=== PATIENT | male | born 1970 | race Caucasian/White ===

== ENCOUNTER 2019-06-13 05:41 | Emergency (ER) | payer BC, SELFPAY ==
[2019-06-13 05:49] VITALS: BP 155/114; PULSE 110; RESP 16; TEMP 37.1; O2SAT 100
--- NOTE | 2019-06-13 06:25 | ED.EXTPRO ---
HPI - Extremity Problem General Chief complaint: Extremity Problem,Nontraumatic Stated complaint: gout Time Seen by Provider: 06/13/19 06:01 History of Present Illness HPI Narrative: Patient is a 48 y/o CM who p/w left ankle pain. H/o gout. Had similar flare 01/2019. Had indomethacine and cholchicine from telemed physician. Had refills. Took 5 day course ending three days ago. Mild improvement in pain. Still walking with a limp. NO f/chills/n/v. No trauma. Related Data Home Medications Medication Instructions Recorded Confirmed No Home Medications 06/13/19 06/13/19 Allergies Allergy/AdvReac Type Severity Reaction Status Date / Time Penicillins Allergy Unknown Unknown Unverified 06/13/19 05:48 Review of Systems Constitutional: Constitutional: Denies chills, Denies fever(s) and Denies weakness Musculoskeletal: Musculoskeletal: Reports back pain (chronic), Reports arthralgias, Reports joint swelling and Denies muscle cramps Integumentary/Breasts: Skin/Breast: Denies erythema and Denies rash PMFSH Past Medical History Medical History (Updated 06/13/19 @ 06:46 by Baldemar Pleitez MD) Gout Hypertension Surgical History Surgical History (Updated 06/13/19 @ 06:46 by Baldemar Pleitez MD) No pertinent past surgical history Social History Social History (Updated 06/13/19 @ 06:47 by Baldemar Pleitez MD) Smoking status: Current every day smoker Exam Const: General: healthy appearing, no acute distress, well developed and alert Orientation/consciousness: patient oriented x3 Limitations: no limitations HENMT: Head: normocephalic and atraumatic Resp: Effort & Inspection: normal respiratory effort and able to speak in complete sentences Auscultation: clear to auscultation bilaterally Cardio: Rate: regular rate Rhythm: regular rhythm Peripheral pulses: popliteal pulses present Skin: General skin exam: normal color and no rashes or lesions noted Trauma: no lacerations or abrasions Wounds: no wounds Neuro: General: patient oriented x3 Speech: normal speech Extrem: General: normal to inspection and no clubbing, cyanosis or edema Other: Limited ROM in left ankle due to pain. No point tenderness to ankle/foot/knee. No swelling of ankle/foot on left. Course Course Emergency Course: Moderate improvement with outpt tx with indomethacin/colchicine. Has been 3 days since last tx. Will give colchicine/prednisone for home. Vital Signs Vital signs: Vital Signs Temperature 98.7 F 06/13/19 05:49 Pulse Rate 110 H 06/13/19 05:49 Respiratory Rate 16 06/13/19 05:49 Blood Pressure 155/114 H 06/13/19 05:49 Pulse Oximetry 100 06/13/19 05:49 Temperature 98.7 F 06/13/19 05:49 Pulse Rate 110 H 06/13/19 05:49 Respiratory Rate 16 06/13/19 05:49 Blood Pressure 155/114 H 06/13/19 05:49 Pulse Oximetry 100 06/13/19 05:49 Discharge Plan Discharge Clinical Impression: Gout Qualifiers: Gout site: ankle Gout etiology: unspecified cause Chronicity: acute Laterality: left Qualified Code(s): M10.9 - Gout, unspecified Patient Disposition: Home, Self-Care Condition: Stable Instructions: Low Purine Diet (ED), Gout (ED) Additional Instructions: Return to the ER if your ankle is red/hot, you have fever over 101F, you have worsening pain, or you have other concerns. Prescriptions: New prednisone 50 mg tablet 50 mg PO DAILY Qty: 7 RF: 0 colchicine 0.6 mg tablet See Rx Instructions .ROUTE .COMPLEX Qty: 3 RF: 0 No Action No Home Medications RF: 0 Follow-up/Referrals: Mason Daniels MD [Physician] - 1 Week UNKNOWN,DOCTOR [Primary Care Provider] -
[2019-06-13 07:01] VITALS: BP 187/112; PULSE 80; RESP 16; O2SAT 99
== END 2019-06-13 07:03 | disposition home or self-care (01) ==
PROVIDERS: Emergency Provider Emergency Medicine
DX: M10.9 Gout, unspecified (principal); I10 Essential (primary) hypertension; F17.200 Nicotine dependence, unspecified, uncomplicated
CPT/HCPCS: 99283

== ENCOUNTER 2019-06-28 09:52 | Emergency (ER) | payer BC, SELFPAY ==
[2019-06-28] VITALS (7 sets, daily range): BP systolic 102–153; BP diastolic 70–98; PULSE 71–89; RESP 16–20; O2SAT 99–100
--- NOTE | ~2019-06-28 | XR_ITS ---
XR chest 1V portable DATE: 06/28/2019 10:30 INDICATION: Chest pain. Syncope. TECHNIQUE: 2 AP views on 06/28/2019 at 1020 hours COMPARISON: None FINDINGS: Diffuse idiopathic skeletal hyperostosis of the thoracic spine. No pulmonary infiltrate or consolidation, pleural effusion or pulmonary vascular congestion or pneumo thorax. IMPRESSION: No active cardiopulmonary disease Reviewed, dictated and finalized at location A.
--- NOTE | 2019-06-28 09:56 | ECG_ITS ---
Measurements Intervals [place] Rate: 74 P: 56 MA: 135 QRS: 61 QRSD: 102 T: 71 QT: 341 QTc: 381 Interpretive Statements SINUS RHYTHM ST ELEVATION IN ANTEROLAT/INF LEADS- PROBABLY EARLY REPOLARIZATION MINIMAL Q WAVES- INFERIOR LEADS BASELINE ARTIFACT- I, II, AVR BORDERLINE ECG Electronically Signed On 06-28-2019 11:01:55 CDT by Mickey Croft D.O.
--- NOTE | 2019-06-28 09:57 | ED.SYNCOPE ---
HPI - Syncope General Chief Complaint: Syncope Stated Complaint: SYNCOPE Source: RN notes reviewed History of Present Illness HPI narrative: Patient presents emergency department via EMS for syncopal episode. The patient was in cardiology office getting a chemical stress test. States he was injected with the medication and began to feel hot and flushed and sweaty. Patient states he felt like he was going to pass out and then had a syncopal episode on the table. Patient denied having any chest pain or shortness of breath. Currently back awake and alert. Denies any previous cardiac history. Denies any fevers or chills abdominal pain nausea or vomiting. Patient states that he did eat a bagel for breakfast this morning Related Data Allergies Allergy/AdvReac Type Severity Reaction Status Date / Time Penicillins Allergy Unknown Unknown Verified 06/28/19 09:58 Review of Systems Review of Systems: Narrative: Gen.: Denies fevers or chills Eyes: Denies eye pain or visual change ENT: Denies congestion Respiratory: Denies shortness of breath or cough CV: Reports single episode GI: Denies abdominal pain nausea, emesis or diarrhea Musculoskeletal: Denies back pain or muscle pain Neuro: Denies numbness, tingling, weakness or focal weakness Skin: Denies rash Except as documented, all other systems reviewed and negative PMFSH Past Medical History Medical History Gout Hypertension Surgical History Surgical History (Updated 06/13/19 @ 06:46 by Baldemar Pleitez MD) No pertinent past surgical history Family History Family History (Updated 06/20/19 @ 08:41 by Steffen Vegas [facility]) Father Epilepsy Mother Heart disease Diabetes mellitus Social History Social History Smoking status: Current every day smoker Tobacco type: cigarettes Alcohol intake: former Substance use: never Gender identity (if verbalized by the patient): Male Spiritual care concerns: No Exam Narrative: Exam Narrative: APPEARANCE: No acute distress, nontoxic, resting in bed EYES: EOMI HEENT: Normocephalic, atraumatic, OMM RESPIRATORY: No respiratory distress Clear to auscultation bilaterally with no rhonchi wheezing or rales. CARDIOVASCULAR: Regular rate and rhythm without murmurs rubs or gallops. ABDOMINAL: Soft, nontender, nondistended, no rebound or guarding MUSCULOSKELETAl: Moves all extremities. No clubbing, cyanosis or edema. NEURO: Awake and alert. Following commands, speech normal, no focal deficits SKIN:: Warm, dry. No rashes lesions or abrasions PSYCHIATRIC: Normal affect/mood, Course Course Emergency Course: Discussed with Dr. Ibanez presentation work-up. Dr. Ibanez came to the emergency department evaluate the patient. Request a 3-hour troponin be obtained and if negative for the patient to go directly to his office with IV intact to receive his stress test After discussion with Dr. Ibanez in discussion with his office the patient had gotten up and use the restroom and come back and had a syncopal episode following coming back the patient is had syncopal episodes before with diabetes being started and felt this is vasovagal Discussed with patient results of workup and diagnosis. Discussed need for follow-up with primary care, proper use of medication, and reasons to return to the emergency department. Patient understands and agrees to current treatment plan Vital Signs Vital signs: Vital Signs Pulse Rate 75 06/28/19 09:50 Respiratory Rate 16 06/28/19 09:50 Blood Pressure 127/94 H 06/28/19 09:50 Pulse Oximetry 100 06/28/19 09:50 Pulse Rate 89 06/28/19 13:02 Respiratory Rate 20 06/28/19 13:02 Blood Pressure 153/84 H 06/28/19 13:02 Pulse Oximetry 100 06/28/19 13:02 MDM - Syncope MDM Narrative Medical decision making narrative: Patient's episode of syncope is
[2019-06-28 10:00] LABS: Glucose Point of Care 82 (65-105)
[2019-06-28 10:08] LABS: Basophils Absolute Auto 0.1 K/mm3 (0.0-0.1); Basophils Percent Auto 0.5 % (0.2-1.2); Eosinophils Absolute Auto 0.3 K/mm3 (0-0.3); Eosinophils Percent Auto 2.1 % (0-4.4); Hematocrit 51.2 % (42.0-52.0); Hemoglobin 17.4 g/dL (14.0-18.0); Immature Granulocyte Absolute 0.08 K/mm3 (0.00-0.031); Immature Granulocyte Percent A 0.7 % (0-0.5); Lymphocytes Absolute Auto 4.64 K/mm3 (0.9-3.2); Lymphocytes Percent Auto 39.4 % (18.3-44.2); Mean Corpuscular Hemoglobin 28.9 pg (26-34); Mean Platelet Volume 9.6 fl (7.4-10.4); Monocytes Absolute Auto 1.1 K/mm3 (0.1-0.6); Monocytes Percent Auto 9.5 % (2.6-8.5); Neutrophils Absolute Auto 5.6 K/mm3 (1.3-6.7); Neutrophils Percent Auto 47.8 % (45.5-73.1); Platelet Count Result 276 k/mm3 (150-375); Red Blood Count 6.02 M/mm3 (4.6-6.20); Red Cell Distribution Width 13.1 % (11.5-14.5); White Blood Count 11.8 K/mm3 (4.5-10.0)
[2019-06-28 10:17] LABS: Partial Thromboplastin Time 25.8 SECONDS (22.3-36.8); Prothrombin Time 12.5 Seconds (11.1-14.7)
[2019-06-28 10:18] LABS: Alanine Aminotransferase 40 U/L (4-50); Albumin Level 4.8 g/dL (3.5-5.1); Alkaline Phosphatase 71 U/L (38-126); Aspartate Amino Transferase 30 U/L (17-59); Bilirubin,Total 0.6 mg/dL (0.2-1.3); Blood Urea Nitrogen 14 mg/dL (9-20); Calcium 10.1 mg/dL (8.4-10.2); Carbon Dioxide 26 mmol/L (22-30); Chloride 101 mmol/L (98-107); Estimated CRCL calculation 104 ml/min; Estimated Glomerular Filt Rate > 60; Glucose 94 mg/dL (75-110); Potassium 4.1 mmol/L (3.4-5.0); Sodium 138 mmol/L (137-145)
[2019-06-28 10:29] LABS: Troponin I < 0.012 ng/mL (0.000-0.034)
[2019-06-28] MEDS: SODIUM CHLORIDE 0.9% IV 1,000 ML 999 ML IV CONT (10:30)
[2019-06-28 13:28] LABS: Troponin I < 0.012 ng/mL (0.000-0.034)
== END 2019-06-28 13:40 | disposition home or self-care (01) ==
PROVIDERS: Emergency Provider Emergency Medicine; PCP Internal Medicine
DX: R55 Syncope and collapse (principal); I10 Essential (primary) hypertension; M10.9 Gout, unspecified; R94.31 Abnormal electrocardiogram [ECG] [EKG]; F17.210 Nicotine dependence, cigarettes, uncomplicated
CPT/HCPCS: 36415; 71045; 80053; 82948; 84484; 85025; 85610; 85730; 93005; 96360; 99284; J7030

== ENCOUNTER 2019-08-17 11:06 | Outpatient (CLI) | payer BC, SELFPAY ==
--- NOTE | ~2019-08-17 | XR_ITS ---
EXAMINATION: XR lumbar spine 2-3V DATE: 08/17/2019 11:36 INDICATION: Low back pain TECHNIQUE: Anteroposterior and lateral views of the lumbar spine, and cone-down lateral view of the l umbosacral junction were obtained. COMPARISON: 05/29/2014 FINDINGS: There are 2 mm of stable retrolisthesis of L5 on S1. There is unchanged mild loss of interv ertebral disc space height throughout the lumbar spine. The vertebral body heights are normal. Degene rative osteophytes project from the anterior endplates of multiple vertebral bodies. Mild to moderate facet osteoarthritis is present in the lower lumbar spine. IMPRESSION: 1. Moderate lumbar spondylosis without acute findings or significant interval change. Reviewed, dictated and finalized at location A. IMPRESSION: 1. Moderate lumbar spondylosis without acute findings or significant interval tiffanie mejias
== END 2019-08-17 11:07 | disposition home or self-care (01) ==
PROVIDERS: PCP Internal Medicine; Visit Provider Chiropractor Rehabilitation
DX: M47.896 Other spondylosis, lumbar region (principal)
CPT/HCPCS: 72100

== ENCOUNTER 2019-10-06 00:40 | Outpatient (CLI) | payer BC, SELFPAY ==
[2019-10-06 18:11] LABS: SARS-CoV-2 RNA PCR Negative
== END 2019-10-06 00:41 | disposition home or self-care (01) ==
LOC: ANHCOVIDDT 00:40
PROVIDERS: PCP Internal Medicine; Visit Provider Internal Medicine Gastroenterology
DX: Z01.812 Encounter for preprocedural laboratory examination (principal); Z11.59 Encounter for screening for other viral diseases
CPT/HCPCS: 87635; C9803; U0003

== ENCOUNTER 2019-10-09 01:56 | Day surgery (SDC) | payer BC, SELFPAY ==
[2019-10-01 12:07] VITALS: BMI 33.9
[2019-10-09 09:24] VITALS: BP 137/93; PULSE 72; RESP 22; TEMP 36.3; O2SAT 95; BMI 32.7
[2019-10-09] MEDS: LACTATED RINGERS 1,000 ML 150 ML IV CONT (09:43)
--- NOTE | 2019-10-09 10:31 | WPDANESEPPF ---
Anes - Initial Pre Proc Eval Procedure: Operation Date: 10/09/19 11:00 Proposed Procedures p Screening Colonoscopy - Manjit Lopez MD Date/Time: 10/09/19 10:31 Surgeon: Manjit Lopez MD Pre Op Diagnosis: neoplasm screening Patient Data Age: 49 Gender: M Height: 6 ft Weight: 109.5 kg Last Vital Signs Temp 97.3 F L 10/09/19 09:24 Pulse 72 10/09/19 09:24 Resp 22 H 10/09/19 09:24 BP 137/93 H 10/09/19 09:24 Pulse Ox 95 10/09/19 09:24 Allergies Allergy/AdvReac Type Severity Reaction Status Date / Time Penicillins Allergy Unknown Unknown Verified 10/09/19 09:23 Home Medications Medication Instructions Recorded Confirmed Type allopurinol 100 mg tablet See Rx Instructions .ROUTE 07/24/19 10/01/19 Rx .COMPLEX #30 tablet amlodipine 5 mg tablet See Rx Instructions .ROUTE 07/24/19 10/01/19 Rx .COMPLEX #30 tablet lisinopril 20 mg tablet See Rx Instructions .ROUTE 07/24/19 10/01/19 Rx .COMPLEX #30 tablet alprazolam 0.5 mg tablet 0.5 mg PO DAILY PRN #30 tablet 07/31/19 10/01/19 Rx aspirin 81 mg tablet,delayed 81 mg PO DAILY 08/06/19 10/01/19 History release ciclopirox 8 % topical solution 1 applic TOPICAL DAILY 336 Days 08/06/19 10/01/19 Rx #6.6 ml escitalopram oxalate 5 mg tablet 5 mg PO DAILY #30 tablet 08/06/19 10/01/19 Rx ketoconazole 2 % topical cream 1 applic TOPICAL BID #60 gm 08/06/19 10/01/19 Rx colchicine 0.6 mg capsule See Rx Instructions PO DAILY #3 cap 08/24/19 10/01/19 Rx peg 3350-electrolytes 236 240 ml PO Q10M #4000 ml 09/27/19 10/01/19 Rx gram-22.74 gram-6.74 gram-5.86 gram solution Patient hx anesthesia problems: none Family hx anesthesia problems: none PMFSH Past Medical History Medical History (Updated 10/09/19 @ 10:31 by Rob Arechiga MD) DJD (degenerative joint disease) Essential hypertension Fatty liver Gout Hypertension Surgical History Surgical History (Updated 06/13/19 @ 06:46 by Baldemar Pleitez MD) No pertinent past surgical history Family History Family History (Updated 06/20/19 @ 08:41 by Steffen Vegas [facility]) Father Epilepsy Mother Heart disease Diabetes mellitus Social History Social History Smoking status: Current every day smoker Tobacco type: cigarettes Alcohol intake: former Substance use: never Gender identity (if verbalized by the patient): Male Spiritual care concerns: No Anes - Eval Final PreProcedure Day of Procedure 10/09/19 10:31 Patient weight: overweight Heart: regular rate and rhythm Lungs: clear to auscultation Airway: Mallampati scale class II Last oral intake: >/= 8 hours ASA classification: III Emergent: no Anesthetic plan: proceed Anesthesia type and monitoring: general GIVS and standard monitoring Informed Consent: The patient's anesthetic plan and its attendant risks and benefits were discussed with the patient/family/POA. Questions were solicited and answers provided to the satisfaction of the patient/family/POA.
--- NOTE | 2019-10-09 10:31 | PM.HPGS ---
History of Present Illness History of Present Illness Consent: Risks, benefits, and alternatives have been discussed and questions answered. Patient agrees to proceed with procedure. Chief complaint: neoplasm screening Narrative: Rob Mojica is a 49 year old male here for first screening colonoscopy Review of Systems Constitutional: Constitutional: Denies headache(s) and Denies weakness Eyes: Eyes: Denies blurry vision ENT: Reports Normal hearing present, Denies headache(s) and Denies neck pain Cardiovascular: Cardiovascular: Denies chest pain and Denies dyspnea Respiratory: Respiratory: Denies dyspnea Gastrointestinal: Gastrointestinal: Reports no additional gastrointestinal complaints Genitourinary: Genitourinary: Denies dysuria Musculoskeletal: Musculoskeletal: Denies neck pain Integumentary/Breasts: Skin/Breast: Denies dry skin Neurologic: Reports Normal hearing present, Denies headache(s) and Denies weakness Psychiatric: Psychiatric: Denies anxiety Endocrine: Endocrine: Denies change in body appearance Hematologic/Lymphatic: Hematologic/Lymphatic: Denies easy bleeding Allergic/Immunologic: Allergic/Immunologic: Denies urticaria PMF Past Medical History Medical History (Updated 10/09/19 @ 10:31 by Rob Arechiga MD) DJD (degenerative joint disease) Essential hypertension Fatty liver Gout Hypertension Surgical History Surgical History (Updated 06/13/19 @ 06:46 by Baldemar Pleitez MD) No pertinent past surgical history Family History Family History (Updated 06/20/19 @ 08:41 by Steffen Vegas [facility]) Father Epilepsy Mother Heart disease Diabetes mellitus Social History Social History Smoking status: Current every day smoker Tobacco type: cigarettes Alcohol intake: former Substance use: never Gender identity (if verbalized by the patient): Male Spiritual care concerns: No Meds Home Medications and Allergies Home Medications Medication Instructions Recorded Confirmed Type allopurinol 100 mg tablet See Rx Instructions .ROUTE 07/24/19 10/01/19 Rx .COMPLEX #30 tablet amlodipine 5 mg tablet See Rx Instructions .ROUTE 07/24/19 10/01/19 Rx .COMPLEX #30 tablet lisinopril 20 mg tablet See Rx Instructions .ROUTE 07/24/19 10/01/19 Rx .COMPLEX #30 tablet alprazolam 0.5 mg tablet 0.5 mg PO DAILY PRN #30 tablet 07/31/19 10/01/19 Rx aspirin 81 mg tablet,delayed 81 mg PO DAILY 08/06/19 10/01/19 History release ciclopirox 8 % topical solution 1 applic TOPICAL DAILY 336 Days 08/06/19 10/01/19 Rx #6.6 ml escitalopram oxalate 5 mg tablet 5 mg PO DAILY #30 tablet 08/06/19 10/01/19 Rx ketoconazole 2 % topical cream 1 applic TOPICAL BID #60 gm 08/06/19 10/01/19 Rx colchicine 0.6 mg capsule See Rx Instructions PO DAILY #3 cap 08/24/19 10/01/19 Rx peg 3350-electrolytes 236 240 ml PO Q10M #4000 ml 09/27/19 10/01/19 Rx gram-22.74 gram-6.74 gram-5.86 gram solution Allergies Allergy/AdvReac Type Severity Reaction Status Date / Time Penicillins Allergy Unknown Unknown Verified 10/09/19 09:23 Vital Signs Vital Signs - 24 hr 10/09/19 09:24 Temperature 97.3 F L Pulse Rate 72 Respiratory Rate 22 H Blood Pressure 137/93 H Pulse Oximetry 95 Exam Const: General: comfortable and no acute distress HENMT: General nose exam: Normal nares present Eyes: General: appearance normal, both eyes and all related structures Neck: Neck: no JVD Resp: Auscultation: clear to auscultation bilaterally Cardio: Rate: regular rate Rhythm: regular rhythm GI: Inspection: non-distended GI Palp: Yes Soft to palpation Skin: General skin exam: normal color Neuro: General: gait normal Speech: normal speech Extrem: General: normal to inspection Psych: Mental Status: mental status grossly normal Assessment and Plan Assessment and plan (1) Encounter for chelseai
[2019-10-09 10:55] VITALS: BP 115/75; PULSE 75; RESP 26; O2SAT 97
[2019-10-09 11:05] VITALS: BP 122/86; PULSE 75; RESP 20; O2SAT 99
[2019-10-09 11:15] VITALS: BP 125/91; PULSE 77; RESP 20; O2SAT 99
== END 2019-10-09 11:26 | disposition home or self-care (01) ==
PROVIDERS: PCP Internal Medicine; Visit Provider Internal Medicine Gastroenterology
PROC: 0DJD8ZZ Inspection of Lower Intestinal Tract, Via Natural or Artificial Opening Endoscopic (ICD-10-PCS; CPT 45378; principal; 2019-10-09 11:00)
DX: Z12.11 Encounter for screening for malignant neoplasm of colon (principal); K64.8 Other hemorrhoids; I10 Essential (primary) hypertension; K76.0 Fatty (change of) liver, not elsewhere classified; M10.9 Gout, unspecified; Z79.82 Long term (current) use of aspirin; F17.210 Nicotine dependence, cigarettes, uncomplicated
CPT/HCPCS: 45378; J2704; J7120

== ENCOUNTER 2019-10-25 14:11 | Outpatient (CLI) | payer BC, SELFPAY ==
--- NOTE | 2019-11-01 00:31 | SLEEP_ITS ---
Home Sleep Test DATE OF STUDY: 10/25/2019 ORDERING PHYSICIAN: Dr. Mason Daniels. REASON FOR THE STUDY: Hypersomnia. HISTORY: This patient is a 49-year-old male, 6 feet tall, weighing 244 pounds with a body mass index of 33. He has complaints of frequently awaking at night with heartburn, belching, or coughing. He occasionally snores and occasionally snores loudly enough that others complain about it. He rarely awakens from sleep feeling short of breath. He occasionally has trouble sleeping with a cold, occasionally gasps for breath at night, occasionally has breathing problems reported by others, frequently sweating excessively at night, but does not notice his heart pounding or beating irregularly at night. He occasionally falls asleep during the day, never involuntarily, never while driving or with physical effort. He does not have loss of muscle tone with strong emotion. He does not have daytime difficulties due to excessive sleepiness. 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 He is not paralyzed on waking or falling asleep. He occasionally has vivid dreamlike scenes upon awakening or falling asleep. He is never afraid to go to sleep. He rarely has nightmares, rarely remembers his dreams, frequently has racing thoughts. He occasionally feels sad, depressed, frequently feels anxious. He constantly has muscular tension. He occasionally notices parts of his body jerking, rarely kicks at night, frequently has crawly achy feelings in his leg and leg pain at night. He does not have morning jaw pain. He does not grind his teeth at night. He constantly is bothered by pain during the day and is awakened by pain at night. He constantly wakes up feeling stiff in the morning with sore achy muscles and pain in the neck and spine joints. He has dizziness, fatigue, concentration difficulties, bowel disturbances. Bedtime is about 10 p.m., taking 30 minutes to fall asleep, typically waking once at night for 5 minutes, will urinate, get a drink and go back to bed. He awakens between 4 and 5 in the morning. He does take naps on the weekends. A short nap is not refreshing. Most of the time he feels good in the morning. He feels better in the afternoon. MEDICAL COMORBIDITIES: Hypertension, gout, anxiety, muscle cramps, and tightness. HABITS: Tobacco, 1 pack a day. Caffeine, he drinks coffee and tea. No alcohol. DESCRIPTION OF THE STUDY: On the [place] Sleepiness Scale, the score is 8. This was conducted as an unattended type III portable home sleep test using 4-channel monitoring including respiratory effort channel, snoring channel, oxygen saturation channel, and heart rate channel. The study was scored using [facility] guidelines. Duration of the study was 8 hours 3 minutes. Apnea-hypopnea index is 6. Oxygen desaturation index is 6. Lowest desaturation 90%. Baseline saturation 97%. He had 1 apnea that was obstructive, 46 hypopneas, 3493 snoring events and 46 desaturations with no time spent below 88%. Heart rate ranged from 56 to 114. IMPRESSION: 1. This home sleep test shows evidence of mild obstructive sleep apnea syndrome, G47.33 with an AHI of 6, desaturation to 90%, frequent loud snoring, but no time spent below 88%. This patient has medical comorbidity including hypertension and as such would qualify for treatment with auto PAP pressures between 5 and 15 cm, heated humidity and an appropriate interface. Close clinical followup is recommended. The patient does have sleep disturbance that seems to be related to his musculoskeletal system. He has hip pain, back pain, herniated disk, heel pain. Sees a chiropractor and Pain Management physician. This may be disturbing his sleep as well. He also may not be allowing himself sufficient sleep as he goes to bed at 10 and wakes up betw
== END 2019-10-25 14:12 | disposition home or self-care (01) ==
LOC: ANHCSM 14:11
PROVIDERS: PCP Internal Medicine; Visit Provider Internal Medicine
DX: G47.33 Obstructive sleep apnea (adult) (pediatric) (principal)
CPT/HCPCS: 95806

== ENCOUNTER 2020-08-26 07:03 | Outpatient (CLI) | payer BC, SELFPAY ==
--- NOTE | ~2020-08-26 | XR_ITS ---
EXAMINATION: XR cervical spine 4-5V DATE: 08/26/2020 08:13 INDICATION: Osteoarthritis. TECHNIQUE: 4 views of cervical spine were obtained. COMPARISON: None. FINDINGS: There is 5 degrees levocurvature of cervicothoracic spine. Vertebral body heights are vu l. There is mildly decreased disc height at C4-C5 and C6-C7. There is multilevel mild facet joint ost eoarthritis. There is mild central canal stenosis at C6-C7. No prevertebral soft tissue swelling. IMPRESSION: 1. Mild cervical spondylosis. Reviewed, dictated and finalized at location A.
--- NOTE | ~2020-08-26 | XR_ITS ---
EXAMINATION: XR foot LT standing 2V DATE: 08/26/2020 08:13 INDICATION: Osteoarthritis. TECHNIQUE: 2 views of left foot were obtained. COMPARISON: None. FINDINGS: Bone alignment is normal. No fracture. There is mild osteoarthritis of fifth proximal inter phalangeal joint and talonavicular joint. There are enthesophytes at the posterior and plantar aspect s of calcaneal tuberosity. IMPRESSION: 1. Mild polyarticular osteoarthritis. Reviewed, dictated and finalized at location A.
--- NOTE | ~2020-08-26 | XR_ITS ---
EXAMINATION: XR shoulder RT min 2V DATE: 08/26/2020 08:13 INDICATION: Osteoarthritis. TECHNIQUE: 4 views of right shoulder were obtained. COMPARISON: None. FINDINGS: Bone alignment is normal. No fracture. There is mild osteoarthritis of glenohumeral joint a nd severe osteoarthritis of acromioclavicular joint. IMPRESSION: 1. Polyarticular osteoarthritis. Reviewed, dictated and finalized at location A.
--- NOTE | ~2020-08-26 | XR_ITS ---
EXAMINATION: XR shoulder LT min 2V DATE: 08/26/2020 08:13 INDICATION: Osteoarthritis. TECHNIQUE: 4 views of left shoulder were obtained. COMPARISON: None. FINDINGS: Bone alignment is normal. No fracture. There is mild osteoarthritis of glenohumeral joint a nd acromioclavicular joint. IMPRESSION: 1. Mild polyarticular osteoarthritis. Reviewed, dictated and finalized at location A.
--- NOTE | ~2020-08-26 | XR_ITS ---
EXAMINATION: XR sacroiliac joints min 3V DATE: 08/26/2020 08:13 INDICATION: Unspecified osteoarthritis TECHNIQUE: AP and left and right oblique views of the sacroiliac joints were obtained. COMPARISON: None. FINDINGS: Alignment is normal. No fracture. Sacroiliac joint spaces appear normal and symmetric with tiny osteo phytes inferiorly consistent with minimal osteoarthritis. No erosions or subarticular sclerosis to tinoco ggest inflammatory sacroiliitis. Irregular contour to the anterosuperior rim of the right acetabulum with large os acetabulum. Bilateral decreased offset at the femoral head neck junctions. Bilateral hi p joint spaces are normal. Mild to moderate lower lumbar facet osteoarthritis. IMPRESSION: 1. Minimal bilateral sacroiliac osteoarthritis. No erosions to suggest inflammatory sacroiliitis. Reviewed, dictated and finalized at location A. IMPRESSION: 1. Minimal bilateral sacroiliac osteoarthritis. No erosions to suggest inflamma tory sacroiliitis.
--- NOTE | ~2020-08-26 | XR_ITS ---
EXAMINATION: XR foot RT standing 2V DATE: 08/26/2020 08:13 INDICATION: Osteoarthritis. TECHNIQUE: 2 views of right foot standing were obtained. COMPARISON: None. FINDINGS: Bone alignment is normal. No fracture. There is mild osteoarthritis of second proximal and distal interphalangeal joints and talonavicular joint. There are enthesophytes at the posterior and p lantar aspects of calcaneal tuberosity. IMPRESSION: 1. Mild polyarticular osteoarthritis. Reviewed, dictated and finalized at location A.
--- NOTE | ~2020-08-26 | XR_ITS ---
EXAMINATION: XR knee RT 3V DATE: 08/26/2020 08:13 INDICATION: Unspecified osteoarthritis, unspecified site. TECHNIQUE: 3 views of right knee were obtained. COMPARISON: None. FINDINGS: Bone alignment is normal. No fracture. There is mild tricompartmental osteoarthritis charac terized by tiny marginal osteophytes. No knee joint effusion. IMPRESSION: 1. Mild right knee osteoarthritis. Reviewed, dictated and finalized at location A.
--- NOTE | ~2020-08-26 | XR_ITS ---
EXAMINATION: HAND-MONIQUE ARTHRITIS 3+VIEWS DATE: 08/26/2020 08:13 INDICATION: Unspecified arthritis TECHNIQUE: Posteroanterior, lateral, and oblique views of the left and of the right hands as well as a ballcatchers view of both hands were obtained. COMPARISON: None. FINDINGS: Bone alignment is normal at the bilateral hands and wrists. No acute fractures. Suggestion of old hea led fracture at the dorsal base of the left fifth distal phalanx. Mild polyarticular osteoarthritis a t the bilateral hands at the first carpal metacarpal joints and at several predominantly distal inter phalangeal joints. Small periarticular erosion at the radial side of the base of the right third prox imal phalanx. No other erosions identified. Soft tissues are unremarkable. IMPRESSION: 1. Nonspecific single erosion at the radial base of the right third proximal phalanx and could not ex clude an inflammatory arthritis including rheumatoid. 2. Typical pattern of mild polyarticular osteoarthritis at the bilateral first carpometacarpal and mu ltiple predominantly distal interphalangeal joints. Reviewed, dictated and finalized at location A. IMPRESSION: 1. Nonspecific single erosion at the radial base of the right third proximal ph alanx and could not exclude an inflammatory arthritis including rheumatoid. 2. Typical pattern of mild polyarticular osteoarthritis at the bilateral first carpometacarpal and multiple predominantly distal interphalangeal joints.
--- NOTE | ~2020-08-26 | XR_ITS ---
EXAMINATION: XR knee LT 3V DATE: 08/26/2020 08:13 INDICATION: Unspecified osteoarthritis, unspecified site. TECHNIQUE: 3 views of left knee were obtained. COMPARISON: None. FINDINGS: Bone alignment is normal. No fracture. There is mild tricompartmental osteoarthritis charac terized by tiny marginal osteophytes. No knee joint effusion. IMPRESSION: 1. Mild left knee osteoarthritis. Reviewed, dictated and finalized at location A.
== END 2020-08-26 07:04 | disposition home or self-care (01) ==
LOC: ANHIMG 07:09
PROVIDERS: PCP Internal Medicine; Visit Provider Internal Medicine
DX: M47.817 Spondylosis without myelopathy or radiculopathy, lumbosacral region (principal); M19.041 Primary osteoarthritis, right hand; M19.042 Primary osteoarthritis, left hand; M47.892 Other spondylosis, cervical region; M19.072 Primary osteoarthritis, left ankle and foot; M19.071 Primary osteoarthritis, right ankle and foot; M19.012 Primary osteoarthritis, left shoulder; M19.011 Primary osteoarthritis, right shoulder; M17.0 Bilateral primary osteoarthritis of knee
CPT/HCPCS: 72050; 72202; 73030; 73130; 73562; 73620

== ENCOUNTER 2020-10-21 10:44 | Emergency (ER) | payer BC, SELFPAY ==
--- NOTE | ~2020-10-21 | XR_ITS ---
EXAMINATION: XR chest 1V portable EXAM DATE: 10/21/2020 10:57 INDICATION: Syncope. TECHNIQUE: Portable AP frontal chest x-ray was obtained. Comparison is made to prior examination from 06/28/2019. FINDINGS: The lungs are clear. There are no pleural effusions. The cardiomediastinal silhouette is within normal limits. There is no pneumothorax suspected. The bones and soft tissues are unremarkab le. IMPRESSION: No acute cardiopulmonary findings. Reviewed, dictated and finalized at location A.
[2020-10-21 10:46] VITALS: BP 109/76; PULSE 83; RESP 15; TEMP 36.8; O2SAT 100
--- NOTE | 2020-10-21 10:46 | ECG_ITS ---
Measurements Intervals [place] Rate: 80 P: 47 WI: 130 QRS: 58 QRSD: 100 T: 69 QT: 350 QTc: 404 Interpretive Statements SINUS RHYTHM BASELINE WANDER- II, III NORMAL ECG Electronically Signed On 10-21-2020 10:50:37 CDT by Mickey Croft D.O.
[2020-10-21 10:49] VITALS: PULSE 81
[2020-10-21] MEDS: LACTATED RINGERS 1,000 ML 999 ML IV CONT (11:02)
[2020-10-21 11:04] LABS: Basophils Absolute Auto 0.1 K/mm3 (0.0-0.1); Basophils Percent Auto 0.9 % (0.2-1.2); Eosinophils Absolute Auto 0.3 K/mm3 (0-0.3); Eosinophils Percent Auto 3.2 % (0-4.4); Hematocrit 47.2 % (42.0-52.0); Hemoglobin 15.8 g/dL (14.0-18.0); Immature Granulocyte Absolute 0.05 K/mm3 (0.00-0.031); Immature Granulocyte Percent A 0.5 % (0-0.5); Lymphocytes Absolute Auto 4.32 K/mm3 (0.9-3.2); Mean Corpuscular HGB Conc 33.5 g/dl (32-36); Mean Corpuscular Volume 89.6 fl (80-100); Mean Platelet Volume 9.7 fl (7.4-10.4); Monocytes Absolute Auto 0.9 K/mm3 (0.1-0.6); Monocytes Percent Auto 8.7 % (2.6-8.5); Neutrophils Absolute Auto 4.4 K/mm3 (1.3-6.7); Neutrophils Percent Auto 43.7 % (45.5-73.1); Platelet Count Result 319 k/mm3 (150-375); Red Blood Count 5.27 M/mm3 (4.6-6.20); Red Cell Distribution Width 13.6 % (11.5-14.5)
[2020-10-21 11:13] LABS: Alanine Aminotransferase 48 U/L (4-50); Albumin Level 4.9 g/dL (3.5-5.1); Alkaline Phosphatase 73 U/L (38-126); Anion Gap 12 mmol/L (8-16); Aspartate Amino Transferase 39 U/L (17-59); Bilirubin,Total 0.5 mg/dL (0.2-1.3); Blood Urea Nitrogen 12 mg/dL (9-20); Carbon Dioxide 22 mmol/L (22-30); Chloride 101 mmol/L (98-107); Estimated CRCL calculation 110 ml/min; Estimated Glomerular Filt Rate > 60; Glucose 101 mg/dL (65-110); Lipase 113 U/L (23-300); Potassium 4.5 mmol/L (3.4-5.0); Sodium 135 mmol/L (137-145)
[2020-10-21 11:14] LABS: Prothrombin Time 12.6 Seconds (11.1-14.7)
[2020-10-21 11:15] LABS: Partial Thromboplastin Time 23.9 SECONDS (22.3-36.8)
--- NOTE | 2020-10-21 11:17 | PC.NURSE ---
patient asked for urine sample at this time, unable to give sample and refusing straight cath at this time.
[2020-10-21 11:25] LABS: NT Pro B Type Natriuretic Pept 26 pg/mL (5-100); Troponin I < 0.012 ng/mL (0.000-0.034)
[2020-10-21 11:36] LABS: D Dimer 0.27 ug/mL (<0.48)
[2020-10-21 11:38] VITALS: BP 130/94; PULSE 78; RESP 11; O2SAT 100
[2020-10-21 12:11] LABS: Add Urine Microscopic? YES; Appearance Urine Clear (Clear); Bilirubin Urine Negative (Negative); Blood Urine Negative (Negative); Color Urine Yellow (Yellow); Glucose Urine UA Negative (Negative); Ketones Urine Negative (Negative); Leukocyte Esterase Ur Negative LEU/UL (Negative); Nitrate Urine Negative (Negative); Protein Urine 1+ mg/dL (Negative); Specific Grav Ur 1.011 (1.001-1.035); Urobilinogen Urine Negative mg/dL (<2.0)
[2020-10-21 12:44] VITALS: BP 138/93; PULSE 77; RESP 20; O2SAT 100
--- NOTE | 2020-10-21 13:11 | PC.NURSE ---
patient walked without difficulty and in no distress at this time.
--- NOTE | 2020-10-21 13:11 | ED.GENADULT ---
HPI - General Adult General Chief complaint: Syncope <Julian Espitia PA-C - Last Filed: 10/21/20 13:15> Stated complaint: Syncopal Episode <Julian Espitia PA-C Last Filed: 10/21/20 13:15> Source: patient, EMS and RN notes reviewed <Julian Espitia PA-C - Last Filed: 10/21/20 13:15> Mode of arrival: EMS <Julian Espitia PA-C - Last Filed: 10/21/20 13:15> Limitations: no limitations <Julian Espitia PA-C Last Filed: 10/21/20 13:15> History of Present Illness HPI narrative: Patient is a 50-year-old male who presents for syncope patient was getting outpatient ultrasound for a wrist pain when he sustained syncope patient was unconscious for a short period notes he has had one other episode in the past patient notes that he may have been overstimulated as the etiology on arrival he is feeling better denies any recent illness specifically no chest pain shortness of breath abdominal pain URI symptoms or headache. <Julian Espitia PA-C Last Filed: 10/21/20 13:15> Related Data Home medications: Home Medications Medication Instructions Recorded Confirmed aspirin 81 mg tablet,delayed 81 mg PO DAILY 08/06/19 09/02/20 release cyclobenzaprine 10 mg tablet 10 mg PO TID 03/13/20 09/02/20 hydrocodone 5 mg-acetaminophen 325 1 tablet PO Q6H PRN 04/01/20 09/02/20 mg tablet cholecalciferol (vitamin D3) 125 125 mcg PO DAILY 09/02/20 09/02/20 mcg (5,000 unit) capsule omeprazole magnesium 20 mg 20 mg PO DAILY 09/02/20 09/02/20 capsule,delayed release <Julian Espitia PA-C Last Filed: 10/21/20 13:15> Allergies/adverse reactions: Allergies Allergy/AdvReac Type Severity Reaction Status Date / Time Penicillins Allergy Mild Unknown Verified 10/21/20 10:50 <KAI Nichols Last Filed: 10/21/20 13:15> Review of Systems Review of Systems: All systems reviewed & are unremarkable except as noted in HPI and below <Julian Espitia PA-C - Last Filed: 10/21/20 13:15> PMFSH Past Medical History Medical History: Medical History Bilateral hand pain COPD (chronic obstructive pulmonary disease) DJD (degenerative joint disease) DJD (degenerative joint disease), lumbosacral Essential hypertension Fatty liver Gout Hypertension <Julian Espitia PA-C - Last Filed: 10/21/20 13:15> Surgical History Surgical History: Surgical History No pertinent past surgical history <Julian Espitia PA-C - Last Filed: 10/21/20 13:15> Family History Family History: Family History Father Epilepsy Mother Heart disease Diabetes mellitus Grandparent Cancer <Julian Espitia PA-C - Last Filed: 10/21/20 13:15> Social History Social History: Social History Smoking packs per day: 0.5 Smoking cigarettes per day: 10.0 Years smoked: 30 Smoking pack-years: 15.00 Smoking status: Current every day smoker Tobacco type: cigarettes Second hand tobacco smoke exposure: Yes Alcohol intake: former Substance use: never Substance use type: does not use Gender identity (if verbalized by the patient): Male Spiritual care concerns: No <Julian Espitia PA-C - Last Filed: 10/21/20 13:15> Exam Narrative: GENERAL: Well-appearing, well-nourished, and in no acute distress. HEAD: Normocephalic, atraumatic. EYES: PERRLA and EOMI. ENT: Nares clear, no rhinorrhea or epistaxis. Mucous membranes moist. Oropharynx without tonsillar hypertrophy exudate or other lesions. NECK: Supple. No adenopathy or masses. No carotid bruits or JVD CHEST: Clear to auscultation. No respiratory distress. No wheezes rales or rhonchi HEART: Regular rate and rhythm. No murmur heard. Normal peripheral pulses. ABD
[2020-10-21 13:19] VITALS: BP 135/85; PULSE 80; RESP 17; O2SAT 100
== END 2020-10-21 13:20 | disposition home or self-care (01) ==
PROVIDERS: Emergency Medicine Emergency Medical Services; Emergency Provider General Practice; PCP Internal Medicine
DX: R55 Syncope and collapse (principal); J44.9 Chronic obstructive pulmonary disease, unspecified; I10 Essential (primary) hypertension; F17.210 Nicotine dependence, cigarettes, uncomplicated; Z79.82 Long term (current) use of aspirin; Z79.891 Long term (current) use of opiate analgesic
CPT/HCPCS: 36415; 71045; 80053; 81001; 83690; 83880; 84484; 85025; 85380; 85610; 85730; 93005; 96360; 99284; J7120

== ENCOUNTER 2020-11-28 09:08 | Emergency (ER) | payer BC, SELFPAY ==
--- NOTE | ~2020-11-28 | XR_ITS ---
XR foot LT 2V DATE: 11/28/2020 10:50 INDICATION: Heel pain, redness. No injury. TECHNIQUE: AP and lateral views COMPARISON: None FINDINGS: There is minimal plantar calcaneal enthesopathy; there is no associated periostitis or eros manan change. No fracture or dislocation, periosteal reaction or bone destruction. Joint spaces are pre served. No erosive changes are noted. IMPRESSION: Minimal plantar calcaneal enthesopathy Reviewed, dictated and finalized at location B.
[2020-11-28 09:20] VITALS: BP 152/106; PULSE 102; RESP 16; TEMP 36.6; O2SAT 100
--- NOTE | 2020-11-28 09:33 | ED.EXTPRO ---
HPI - Extremity Problem General Chief complaint: Extremity Problem,Nontraumatic Stated complaint: left ankle swelling Time Seen by Provider: 11/28/20 09:33 Source: patient Mode of arrival: ambulatory Limitations: no limitations History of Present Illness HPI Narrative: The patient is a 50 yo male with a history of gout, HTN, who presents for evaluation of left lower extremity ankle pain/heel pain. Pain began two days ago, initially started as hard bump on heel. Pain is 10/10 throbbing in nature, exacerbated with movement. There is some redness of the left heel. Pt denies recent fall or injury. No wound or bleeding. Pt does report mild swelling. He denies systemic symptoms such as fever, chills, nausea or vomiting. He denies calf pain. He does have a history of plantar fasciitis, and did have a steroid injection to his feet this week. Pt has been taking flexeril, gabapentin, and vicodin which has not relieved his pain. Related Data Home Medications Medication Instructions Recorded Confirmed aspirin 81 mg tablet,delayed 81 mg PO DAILY 08/06/19 11/12/20 release cholecalciferol (vitamin D3) 125 125 mcg PO DAILY 09/02/20 11/12/20 mcg (5,000 unit) capsule omeprazole magnesium 20 mg 20 mg PO DAILY 09/02/20 11/12/20 capsule,delayed release allopurinol 11/28/20 amlodipine 11/28/20 cyclobenzaprine mg 11/28/20 duloxetine mg PO 11/28/20 gabapentin 11/28/20 hydrocodone-acetaminophen 11/28/20 lisinopril 11/28/20 Allergies Allergy/AdvReac Type Severity Reaction Status Date / Time Penicillins Allergy Mild Unknown Verified 11/12/20 10:17 Review of Systems Review of Systems: CONSTITUTIONAL: Denies fever, chills, or sweats. EYES: Denies visual changes, redness, or discharge. ENT: Denies rhinorrhea, congestion, sore throat, or otalgia. CARDIOVASCULAR: Denies chest pain, palpitations, or edema. RESPIRATORY: Denies cough or dyspnea. GASTROINTESTINAL: Denies abdominal pain, nausea, vomiting, or diarrhea. GENITOURINARY: Denies dysuria or hematuria. SKIN: Denies rash or itching. MUSCULOSKELETAL: Denies back pain, reports left heel pain, redness NEUROLOGIC: Denies headache, numbness, or weakness. PMFSH Past Medical History Medical History Bilateral hand pain COPD (chronic obstructive pulmonary disease) DJD (degenerative joint disease) DJD (degenerative joint disease), lumbosacral Essential hypertension Fatty liver Gout Hypertension Surgical History Surgical History No pertinent past surgical history Family History Family History Father Epilepsy Mother Heart disease Diabetes mellitus Grandparent Cancer Social History Social History Smoking packs per day: 0.5 Smoking cigarettes per day: 10.0 Years smoked: 30 Smoking pack-years: 15.00 Smoking status: Current every day smoker Tobacco type: cigarettes Second hand tobacco smoke exposure: Yes Alcohol intake: former Substance use: never Substance use type: does not use Gender identity (if verbalized by the patient): Male Spiritual care concerns: No Exam Narrative: GENERAL: Awake, alert, conversant HEAD: Normocephalic, atraumatic. EYES: PERRLA and EOMI. ENT: Nares clear, no rhinorrhea or epistaxis. Mucous membranes moist. NECK: Supple. CHEST: No respiratory distress, breathing even and non labored HEART: Regular rate, sinus rhythm ABDOMEN:Non distended, non tender EXTREMITIES: Decreased ROM in left ankle due to pain. Patient with erythema, 3 cm area of induration overlying the left heel area. No streaking erythema. No calf pain. No edema. No edema of the foot. DP pulse 2+. SKIN: Warm, dry, no rash. NEURO:No focal deficits. Alert and oriented x3 Course Vital Signs Vital signs:
[2020-11-28 10:49] LABS: Basophils Absolute Auto 0.1 K/mm3 (0.0-0.1); Basophils Percent Auto 0.5 % (0.2-1.2); Eosinophils Absolute Auto 0.3 K/mm3 (0-0.3); Eosinophils Percent Auto 3.7 % (0-4.4); Hematocrit 44.8 % (42.0-52.0); Hemoglobin 15.3 g/dL (14.0-18.0); Immature Granulocyte Absolute 0.04 K/mm3 (0.00-0.031); Immature Granulocyte Percent A 0.4 % (0-0.5); Lymphocytes Absolute Auto 3.06 K/mm3 (0.9-3.2); Mean Corpuscular HGB Conc 34.2 g/dl (32-36); Mean Corpuscular Hemoglobin 30.5 pg (26-34); Mean Corpuscular Volume 89.4 fl (80-100); Mean Platelet Volume 9.6 fl (7.4-10.4); Monocytes Absolute Auto 0.7 K/mm3 (0.1-0.6); Monocytes Percent Auto 7.9 % (2.6-8.5); Neutrophils Absolute Auto 5.1 K/mm3 (1.3-6.7); Neutrophils Percent Auto 54.5 % (45.5-73.1); Platelet Count Result 271 k/mm3 (150-375); Red Blood Count 5.01 M/mm3 (4.6-6.20); Red Cell Distribution Width 13.2 % (11.5-14.5); White Blood Count 9.3 K/mm3 (4.5-10.0)
[2020-11-28 11:04] LABS: Anion Gap 11 mmol/L (8-16); Blood Urea Nitrogen 19 mg/dL (9-20); Calcium 9.7 mg/dL (8.4-10.2); Carbon Dioxide 25 mmol/L (22-30); Chloride 101 mmol/L (98-107); Estimated CRCL calculation 121 ml/min; Estimated Glomerular Filt Rate > 60; Glucose 100 mg/dL (65-110); Potassium 4.3 mmol/L (3.4-5.0); Sodium 137 mmol/L (137-145)
[2020-11-28 11:07] LABS: CRP 0.6 mg/dL (<1.0)
[2020-11-28 13:31] LABS: Erythrocyte Sedimentation Rate 15 mm/hr (0-20)
== END 2020-11-28 13:02 | disposition home or self-care (01) ==
PROVIDERS: Emergency Provider Emergency Medicine; PCP Internal Medicine
DX: M79.672 Pain in left foot (principal); I10 Essential (primary) hypertension; J44.9 Chronic obstructive pulmonary disease, unspecified; M10.9 Gout, unspecified; F17.210 Nicotine dependence, cigarettes, uncomplicated; M77.9 Enthesopathy, unspecified
CPT/HCPCS: 36415; 73620; 80048; 84550; 85025; 85652; 86140; 99283

== ENCOUNTER → 2021-02-12 03:52 | Outpatient (CLI) | payer BC, SELFPAY ==
[2021-02-17 22:00] LABS: SARS-CoV-2 RNA PCR Negative
== END ==
PROVIDERS: PCP Internal Medicine; Visit Provider Internal Medicine
DX: R68.89 Other general symptoms and signs (principal); Z20.822 Contact with and (suspected) exposure to COVID-19
CPT/HCPCS: C9803; U0003; U0005

== ENCOUNTER 2021-08-20 10:19 | Outpatient (CLI) | payer BC, SELFPAY ==
--- NOTE | 2021-08-20 10:35 | ECG_ITS ---
Measurements Intervals [place] Rate: 107 P: 65 MA: 119 QRS: 57 QRSD: 90 T: 64 QT: 312 QTc: 417 Interpretive Statements SINUS TACHYCARDIA WITH SHORT MA INTERVAL POSSIBLE LEFT ATRIAL ENLARGEMENT [-0.1mV P WAVE IN V1/V2] ABNORMAL RHYTHM ECG COMPARED TO ECG 10/21/2020 10:46:57 SINUS TACHYCARDIA NOW PRESENT Electronically Signed On 08-21-2021 16:22:22 CDT by Nima Stark M.D.
== END 2021-08-20 10:20 | disposition home or self-care (01) ==
LOC: ANHCARD 10:23
PROVIDERS: PCP Internal Medicine; Visit Provider Internal Medicine
DX: I10 Essential (primary) hypertension (principal)
CPT/HCPCS: 93005

== ENCOUNTER 2023-02-03 09:21 | Outpatient (CLI) | payer BC, SELFPAY ==
--- NOTE | ~2023-02-03 | XR_ITS ---
XR shoulder LT min 2V, XR scapula LT 02/03/2023 09:58 Indication: Left shoulder pain Procedure: 4 views left shoulder and 2 views left scapula Comparison: 08/26/2020 Findings: Mild osteoarthritis of the left glenohumeral and acromioclavicular joints. No fracture or t raumatic malalignment. No significant soft tissue abnormality. No foreign bodies. Impression: 1: Stable mild polyarticular osteoarthritis. Reviewed, dictated and finalized at location L. NING AND DEVELOPMENT DIRECTOR Impression: 1: Stable mild polyarticular osteoarthritis. Impression: 1: Stable mild polyarticular osteoarthritis.
--- NOTE | ~2023-02-03 | XR_ITS ---
Cervical Spine: AP, lateral, open-mouth views Clinical History: Pain Findings: The normal lordotic curve is maintained. The vertebral bodies and posterior elements appea r intact. There is mild degenerative disc narrowing at C4-C5. There is moderate degenerative disc dominic rowing at C6-C7. Pre-vertebral soft tissues are unremarkable. Impression: Degenerative disc narrowing, as above. Reviewed, dictated and finalized at location . TY COMPLIANCE SPECIALIST Impression: Degenerative disc narrowing, as above.
== END 2023-02-03 09:22 | disposition home or self-care (01) ==
PROVIDERS: PCP Family Medicine; Visit Provider Family Medicine
DX: M54.2 Cervicalgia (principal); M89.8X1 Other specified disorders of bone, shoulder; M19.012 Primary osteoarthritis, left shoulder
CPT/HCPCS: 72040; 73010; 73030

== ENCOUNTER 2023-04-12 11:42 | Outpatient (CLI) | payer BC, SELFPAY ==
[2023-04-12 12:52] LABS: Influenza A QL RT-PCR Positive (Negative); Influenza B QL RT-PCR Negative (Negative); RSV RNA, RT-PCR Negative (Negative); SARS-CoV-2 RNA PCR Negative (Negative)
== END 2023-04-12 11:43 | disposition home or self-care (01) ==
LOC: ANHLAB 11:44
PROVIDERS: PCP Family Medicine; Visit Provider Nurse Practitioner Family
DX: J06.9 Acute upper respiratory infection, unspecified (principal); Z20.822 Contact with and (suspected) exposure to COVID-19
CPT/HCPCS: 87637

== ENCOUNTER 2023-07-18 14:50 | Outpatient (CLI) | payer BC, SELFPAY ==
--- NOTE | ~2023-07-18 | CT_ITS ---
EXAMINATION: CT sinus wo con DATE: 07/18/2023 15:10 INDICATION: Chronic frontal sinusitis TECHNIQUE: Computed tomography (CT) of the paranasal sinuses was performed without contrast. Iterativ e reconstruction technique was employed. Exam dose: 279.12 mGy-cm total exam DLP. COMPARISON: None FINDINGS: Virtually midline nasal septum. The nasal turbinates are symmetric and normal in appearance . The ostiomeatal units are patent bilaterally. Bilateral inferior and right posterior maxillary sinus and mild mucoperiosteal thickening. The paranasal sinuses otherwise are normally developed and aerated. The frontal sinuses are clear. The mastoid air cells are well developed and aerated bilaterally. IMPRESSION: Mild mucoperiosteal thickening of the maxillary sinuses, right greater than left; otherw ise unremarkable examination Reviewed, dictated and finalized at Location A. Reviewed, dictated and finalized at location B. IMPRESSION: Mild mucoperiosteal thickening of the maxillary sinuses, right gre ater than left; otherwise unremarkable examination
== END 2023-07-18 14:51 ==
PROVIDERS: PCP Family Medicine; Visit Provider Otolaryngology
DX: J32.1 Chronic frontal sinusitis (principal); J34.89 Other specified disorders of nose and nasal sinuses
CPT/HCPCS: 70486

== ENCOUNTER 2023-08-04 12:43 | Outpatient (CLI) | payer BC, SELFPAY | END 2023-08-04 12:44 | disposition home or self-care (01) | LOC: ANHAUDIO 12:44 | PROVIDERS: PCP Family Medicine; Visit Provider Otolaryngology | DX: H90.41 Sensorineural hearing loss, unilateral, right ear, with unrestricted hearing on the contralateral side (principal); H66.90 Otitis media, unspecified, unspecified ear; J32.2 Chronic ethmoidal sinusitis; J32.1 Chronic frontal sinusitis | CPT/HCPCS: 92557; 92567 ==

== ENCOUNTER 2025-01-10 06:44 | Outpatient (CLI) | payer BC, SELFPAY ==
--- OUTSIDE RECORDS SUMMARY | 2025-01-10 06:47 | XMS_ITS | Clinical Summary ---
Author Organization [facility] Address [address] [place] [address] Phone Care Team Providers Care Veneer Stock Grader Name Role Phone Mason Daniels MD Primary Care Provider [phone] Allergies Active Allergy Reactions Criticality Noted Date Comments Penicillins Unknown 08/18/2021 Medications No known medications Immunizations Immunization Administration Dates Next Due (ADACEL/BOOSTRIX)(10 YR UP) TDAP VACCINE, 0.5ML, IM 08/18/2021 Social History Tobacco Use Types Packs/Day Years Used Date Smoking Tobacco: Never Assessed Sex and Gender Information Value Date Recorded Sex Assigned at Not on file Legal Sex Male 7:32 AM CDT Gender Identity Not on file Sexual Orientation Not on file Last Filed Vital Signs Vital Sign Reading Time Taken Comments Blood Pressure 154/93 08/18/2021 9:38 AM CDT Pulse 87 08/18/2021 9:38 AM CDT Temperature 36.7 C (98 F) 08/18/2021 9:38 AM CDT Respiratory Rate 18 08/18/2021 9:38 AM CDT Oxygen Saturation 99% 08/18/2021 9:38 AM CDT Inhaled Oxygen Concentration - - Weight 113.4 kg (250 lb) 08/18/2021 7:37 AM CDT Height 177.8 cm (5' 10) 08/18/2021 7:37 AM CDT Body Mass Index 35.87 08/18/2021 7:37 AM CDT Plan of Treatment Health Maintenance Due Date Last Done Comments HEPATITIS B VACCINES (1 of 3 - 19+ 3-dose series) 06/1988 COLORECTAL SCREENING 2014 Colorectal Cancer Screening 2014 FIT-DNA Q 3 years 2014 FIT/FOBT Q 1 year 2014 Flex Sig/CT Colonography Q 5 years 2014 ZOSTER VACCINE (1 of 2) 08/03/2019 INFLUENZA VACCINE (#1) 2024 DTAP/TDAP/TD VACCINES (2 - Td or Tdap) 08/19/2031 Insurance [employer] [id number] [place] [address] Care Teams Veneer Stock Grader Relationship Specialty Start Date End Date Mason Daniels MD [address] [facility] [place] [id number] PCP - General Internal Medicine 08/18/21
--- OUTSIDE RECORDS SUMMARY | 2025-01-10 06:47 | XMS_ITS | Patient Health Record ---
Author Organization [facility] [employer] Address [address] [place] [address] Care Team Providers Care Shredder Operator Name Role Phone Vernon Watt Unavailable [phone] Reason For Referral No Information Medications Medication SIG (Take, Route, Frequency, Duration) Notes Start Date End Date Status DULoxetine HCl 30 MG Capsule Delayed Release Particles Oral Active WIXELA INHUB 250 MCG-50 MCG/DOSE POWDER FOR INHALATION *Reorder from [employer]um for eRx and Interaction Alerts* Active Allopurinol 100 MG Tablet Oral Active Ketoconazole 2% Cream External Active GaviLyte-G 236 GM Solution Reconstituted Oral *Reorder from [employer] for eRx and Interaction Alerts* Active Ciclopirox 8% Solution External Active Escitalopram Oxalate 5 MG Tablet Oral Active Cyclobenzaprine HCl 10 MG Tablet Oral Active HYDROcodone-Acetaminoph en 7.5-325 MG Tablet Oral Active Lisinopril 20 MG Tablet Oral Active HYDROcodone-Acetaminoph en 5-325 MG Tablet Oral Active amLODIPine Besylate 5 MG Tablet Oral Active Escitalopram Oxalate 10 MG Tablet Oral Active Social History Social History Additional Details Category Social Info Options Details Migrated Social History Migrated Social History Tobacco Years: Current every day smoker 09/03/2020,Smoking Status: 30 09/03/2020 Plan Of Treatment No Information Insurance Providers Payer Name Payer Address Payer Phone Subscriber Number Group Number Insured Name Patient Relationship to Insured Coverage Start Date Coverage End Date [facility] [address] [place] [address] [id number] ADAL BRITTON Self - patient is the insured
--- OUTSIDE RECORDS SUMMARY | 2025-01-10 06:47 | XMS_ITS | Clinical Summary ---
Author Organization [facility] Address [address] [place] [address] Care Team Providers Care Bedspread Folder Name Role Phone Unavailable Primary Care Provider Unavailabl e Social History Tobacco Use Types Packs/Day Years Used Date Smoking Tobacco: Never Assessed Sex and Gender Information Value Date Recorded Sex Assigned at Not on file Legal Sex Male 8:08 PM CDT Gender Identity Not on file Sexual Orientation Not on file Plan of Treatment Health Maintenance Due Date Last Done Comments Colorectal Cancer Screening Colonoscopy (10 Years) 1969 Annual Physical 1972 Hepatitis C 08/03/1987 DTaP, Tdap and Td Vaccines ( 1 - Tdap) 1988 Hepatitis B Vaccines (1 of 3 - 19+ 3-dose series) 1988 Pneumococcal Vaccine: 50+ Ye ars (1 of 1 - PCV) 08/03/2019 Zoster Vaccines (1 of 2) 08/03/2019 COVID-19 Vaccine ( - 2024-2 6 season) 2024 Influenza Adult (#1) 2024 Hepatitis A Vaccines Aged Out No long er eligible based on patient's age to complete this topic Meningococcal B Vaccine Aged Out No l onger eligible based on patient's age to complete this topic Meningococcal Vaccine Aged Out No savi sera eligible based on patient's age to complete this topic RSV Immunizations Under 20 Months Aged Out No longer eligible based on patient's age to complete this topic
--- NOTE | 2025-02-18 11:05 | P.SLEEP_ITS ---
Sleep Study - Home Unattended Date of Study: 01/10/25 Ordering Provider: Thomas Sparks MD Interpreting Provider: Ksenia Conway, DO Home Sleep Study Type: Watch PAT Height: 1.78 m Weight: 108.409 kg Body Mass Index: 34.2 Neck Circumference (inches): 17.5 Barling: 7 Reason for Sleep Study Difficulty falling asleep Sleep History The patient is a 54 year old male that had a sleep study ordered by his primary care physician for evaluation of sleep apnea. The patient admits to having difficulty falling asleep. He denies snoring loudly. He denies having interruptions in breathing while asleep. He denies choking or gasping at night. He denies having trouble breathing on his back. He denies morning headaches. He does have a dry or sore mouth / throat in the morning. He does have nocturnal heartburn. He urinates twice throughout the night. He denies having difficulty staying asleep. He denies having difficulty returning to sleep if he wakes up throughout the night. He denies any hypnotic or sedative use. He denies feeling anxious about sleep. He does feel tired or sleepy during the day. He does feel tired in the morning. He does have the urge to fall asleep during the day. He denies feeling drowsy while driving. He denies sleep paralysis, cataplexy and hypnagogic/ hypnopompic hallucinations. He denies clenching or grinding his teeth. He denies kicking or jerking his legs excessi vely. He denies having a restless feeling in his legs. He goes to bed at 8:00 p.m. on work days and at 9:30 p.m. on his days off. It takes him 1 hour to fall asleep. He gets 6 hours and 45 minutes of sleep on work days and 6-1/2 hours on his days off. His sleep is a little more restorative on days off. He does take a planned naps in afternoon that lasts 1- 2 hours. The nap is restorative. He denies dream enactment behavior. He denies sleep walking. He consumes more than 5 caffeinated beverages per day. He smokes more than 1 pack of cigarettes per day. He denies alcohol use. He denies exercising on a regular basis. [facility] Past Medical History Medical History Tinea versicolor Bilateral hand pain DJD (degenerative joint disease), lumbosacral COPD (chronic obstructive pulmonary disease) DJD (degenerative joint disease) Essential hypertension Fatty liver Hypertension Gout Surgical History Surgical History S/P tendon repair No pertinent past surgical history Family History Family History Father Epilepsy Mother Heart disease Diabetes mellitus Grandparent Cancer Social History Social History Smoking packs per day: 1 Smoking cigarettes per day: 20.0 Years smoked: 30 Smoking pack-years: 30.00 Smoking status: Current every day smoker Tobacco type: cigarettes Second hand tobacco smoke exposure: Yes Smoking end date: 03/31/22 Alcohol intake: former Alcohol use details: Pt does not drink anymore. Substance use: never Substance use type: does not use Lack of Transportation: No Lack of Food: Never True Current Housing: I Have Housing Concerned About Future Housing: No Difficulty Paying Gas/Electric Bills: No Difficulty Paying for Meds: YES Currently Unemployed: No Education: Associate Degree Difficulty w/ Childcare or Family Care: No Gender identity (if verbalized by the patient): Male Spiritual care concerns: No Medications Home Medications ?Medication ?Instructions ?Recorded ?Confirmed ?Type cholecalciferol (vitamin D3) 125 125 mcg PO DAILY 08/1802/08/25 History mcg (5,000 unit) capsule omeprazole magnesium 20 mg 20 mg PO DAILY 09/02/2002/21 History capsule,delayed release (Acid [employer] Program [employer]inator (omeprazole)) cyclobenzaprine 10 mg tablet mg 11/28/20 02/08/25 Hist ory gabapentin 300 mg capsule 11/28/20 02/08/25 History meloxicam 15 mg tablet 15 mg PO DAILY 09/09/2201/28 History aspirin 81 mg capsule 81 mg PO DAILY 05/30/2301/28 History magnesium citrate (Citrate of 150 ml PO DAILY 05/30/23 02/08/25 History Magnesia oral) allopurinol 300 mg tablet See Rx Instructions .Route 0 08/24/24 02/08/25 Rx .COMPLEX #90 tabs azelastine 137 mcg (0.1 %) nasal 137 mcg (0.137 mL) in tranasal . 10/08/2402/08 Rx spray q.h.s. chronic seasonal all ergic rhinitis #30 mL clotrimazole 1 % topical solution 1 applic topical TID fungal 10/08/24 02/08/25 Rx external otitis #30 mL hydrocodone 10 mg-acetaminophen tablet PO 10/08/2402/21 History 325 mg tablet albuterol sulfate 90 mcg/actuation 1 inh inhalation Q4 H PRN shortness 11/12/24 02/08/25 Rx aerosol inhaler of breath or wheezing #8.5 g dot amlodipine 5 mg tablet See Rx Instructions .Route 1 03/16/24 02/08/25 Rx .COMPLEX #90 tabs lisinopril 20 mg tablet See Rx Instructions .Route 1 03/16/24 02/08/25 Rx .COMPLEX #90 tabs Sleep Procedure The sleep study was completed using [employer] a technically adequate device with seven channels: peripheral arterial tone, actigraphy, body position, snore, respiratory movement, pulse oximetry, sleep staging, and heart rate. Prior to using the device, the patient received verbal and written instructions for its application and was provided with the help desk phone number for additional telephonic instruction with 24-hour availability of qualified personnel to answer questions. The study was scored using CMS guidelines. Sleep Architecture The total recording time is 8 hrs, 25 min. The total sleep time is 7 hrs, 7 min. Sleep latency is 23 minutes. REM latency is 67 minutes. The patient had 7 episodes of waking. Sleep architecture shows 8.0% deep sleep, 75.5% light sleep, and (as % Total Sleep Time) showed NREM (Light 75.5%; Deep 8.0%), and a 16.5% stage REM. The patient spent 100.0% of total sleep time in the supine position. Sleep efficiency was 84.55. Respiratory Analysis The overall AHI (pAHI 4%:) is 1.5. The overall AHI (pAHI 3%:) is 3.8. The central AHI is 0.5. The AHI was 2.4 in NREM and 10.3 in REM sleep. The AHI was 3.8 in Supine and N/A in Non-supine sleep. Percent of Enzo Zazueta respirations is 0.0. Oximetry Data The oxygen desaturation index (MILTON 4%:) is 0.5. The mean saturation is 95%, and the lowest saturation is 92%. Time spent with saturation < 88% is 0.0 minutes. Snoring Profile Snoring average intensity is 41 dB. The patient snored above 45 decibels for 17.7 minutes, 4.1% of sleep time. Cardiac Profile The average pulse rate is 68 beats per minutes. The lowest pulse rate is 49 bpm. The highest pulse rate reported is 104 bpm. Atrial fibrillation was not detected. Premature beats occur <0.1 per minute. Assessment and Plan Assessment and Plan (1) Sleep disturbances: Code(s): G47.9 - Sleep disorder, unspecified Status: Acute Assessment and Plan: The patient had an overall AHI of 1.5 with desaturation down to 92%. This is not consistent with sleep disordered breathing. If there are further concerns for a sleep disorder, I recommend that the patient have a split study with the use of a hypnotic to ensure we obtain enough sleep data. Data The data obtained during this sleep study is adequate for interpretation. Certification This sleep study has been reviewed by a board certified sleep medicine physician.
== END 2025-01-21 10:12 | disposition home or self-care (01) ==
LOC: ANHCSM 06:45
PROVIDERS: PCP Family Medicine; Visit Provider Family Medicine
DX: G47.33 Obstructive sleep apnea (adult) (pediatric) (principal)
CPT/HCPCS: 95800